=== PATIENT | male | born 1975 | race Caucasian/White ===

== ENCOUNTER 2021-12-16 12:51 | Emergency (ER) | payer OTHER ==
--- OUTSIDE RECORDS SUMMARY | 2021-12-16 12:53 | XMS REPORT | Continuity of Care Document ---
:1975 Author Organization [facility] t Address [address] [place] [address] Care Team Providers Name Role Phone Lowell-Vinicius_A_AH Attending Clinician Unavailable Karely Fuentes Attending Clinician Lowell-Jakobo_A_AH Admitting Clinician Unavailable Payers Payer Name Policy Type Policy Number Effective Date Expiration Date S noreen [facility] [place] [facility] [id number] 2019 [place] 00:00:00 (MEDICARE REPLACEMENT/ADVANT AGE - HMO) Problems Condition Condition Condition Status Onset Resolution Last Treating Co mments Source Name Details Category Date Date Treatment Clinician Date No known No known Disease Unive rs active active ity of problems problems [facility] Allergies, Adverse Reactions, Alerts This patient has no known allergies or adverse reactions. Social History Social Habit Start Date Stop Date Quantity Comments Source History of tobacco Cigarette Smoker [facility] use [facility] Alcohol intake [facility] Assigned [facility] Smoking Status Start Date Stop Date Source Former smoker 2019-07-06 00:00:00 2019-07-06 00:00:00 [facility] Medications Ordered Filled Start Stop Current Ordering Indication Dosage Frequency Signature Comments Components Source Medication Medication Date Date Medication? Clinician (SIG) Name Name ibuprofen Yes [id number] 600mg Take 1 [facility] 600 mg 8-21 tablet by ity of tablet 00:00: mouth [place] 00 every 6 Medical (six) Branch hours as needed for Pain (scale 4-6). amoxicillin 2019- No [id number] 500mg Take 1 [facility] 500 mg 8-21 07-17 capsule by ity of capsule 00:00: 04:59 mouth 3 [place] 00 :00 (three) Medical times Branch daily for 10 days. Vital Signs Vital Name Observation Time Observation Value Comments Source Systolic blood 2019-07-06 20:52:00 133 mm[Hg] Univer sity of pressure [facility] Diastolic blood 2019-07-06 20:52:00 69 mm[Hg] Unive rsity of pressure [facility] Heart rate 2019-07-06 20:52:00 100 [facility] Body temperature 2019-07-06 20:52:00 36.83 [facility] Respiratory rate 2019-07-06 20:52:00 14 /min [facility] Body height 2019-07-06 20:52:00 170.2 cm Universi ty [facility] Body weight 2019-07-06 20:52:00 72.576 kg Universi [facility] BMI 2019-07-06 20:52:00 25.06 kg/m2 [facility] Oxygen saturation in 2019-07-06 20:52:00 96 /min [facility] Arterial blood by [facility] Pulse oximetry Branch Procedures Procedure Date / Time Performed Performing Clinician [facility] e NOTICE OF PRIVACY 2019-07-06 20:45:37 Doctor Unassigned, No [facility] PRACTICES Name Medical Branch Encounters Start End Encounter Admission Attending Care Care Encounter Source Date/Time Date/Time Type Type Clinicians Facility Department ID 2020-01-04 2020-01-04 Outpatient Lowell-Vinicius [facility] [id number] [facility] 07:17:00 07:17:00 _A_ [id number] Family Practic e 2019-07-06 2019-07-06 Emergency Ke Lopez [facility] [id number] [facility] 15:54:05 17:23:00 Karely King [id number] i ty [facility] [id number] [facility] [id number] Medi jose guadalupe 084 Branch Results This patient has no known results.
[2021-12-16 15:17] LABS: Urine Blood Negative (Negative); Urine Glucose Negative (Negative); Urine Protein Negative (Negative); Urine Specific Gravity 1.025 (1.005-1.030)
[2021-12-16 15:29] LABS: Absolute Lymphocytes (CBC) 1.7 K/uL (0.7-4.9); Hematocrit 43.1 % (39.6-49.0); Lymphocytes % 32.5 % (15.3-44.8); MPV 8.2 fL (7.6-11.3); RBC Red Blood Cell Count 4.46 M/uL (4.33-5.43)
[2021-12-16 15:30] LABS: Protime INR 0.98
[2021-12-16 15:44] LABS: Barbiturates NEGATIVE (NEGATIVE); Benzodiazepines NEGATIVE (NEGATIVE); Cocaine NEGATIVE (NEGATIVE); METHAMPHETAM NEGATIVE (NEGATIVE); Methadone NEGATIVE (NEGATIVE); Opiates NEGATIVE (NEGATIVE); Phencyclidine NEGATIVE (NEGATIVE); THC Cannibis POSITIVE (NEGATIVE)
[2021-12-16 15:54] LABS: ALT/SGPT 93 U/L (12-78); AST/SGOT 70 U/L (15-37); Albumin 3.6 g/dL (3.4-5.0); Alkaline Phosphatase 133 U/L (45-117); BUN Blood Urea Nitrogen 16 mg/dL (7-18); Bicarbonate 28 mmol/L (21-32); Bilirubin Direct 0.2 mg/dL (0-0.2); Bilirubin Total 0.5 mg/dL (0.2-1.0); Glucose Level 99 mg/dL (74-106); NT PRO-BNP 42 pg/mL (<125); Potassium 4.3 mmol/L (3.5-5.1); Protein, Total 7.6 g/dL (6.4-8.2); Sodium Level 138 mmol/L (136-145); Thyroid Stimulating Hormone 0.808 uIU/mL (0.360-3.740)
--- NOTE | 2021-12-16 16:00 | RAD REPORT ---
EXAM DESCRIPTION: RAD - Chest Single View - 12/16/2021 3:53 pm CLINICAL HISTORY: PALPITATIONS COMPARISON: CHEST PA AND LAT 2 VIEW dated 08/20/2008 FINDINGS: Lines: None. Lungs: No evidence of edema or pneumonia. Pleural: No significant pleural effusions or pneumothorax. Cardiac: The heart size is within normal limits. Bones: No acute fractures. Remote right-sided rib fractures. Other: IMPRESSION: No acute cardiopulmonary disease.
[2021-12-16 16:20] LABS: T3 Free 2.94 pg/mL (2.18-3.98)
--- NOTE | 2021-12-16 19:41 | EDPHYS ---
Physician Documentation [facility] Name: Perry Daniel Age: 46 yrs Sex: Male : 1975 Arrival Date: 12/16/2021 Time: 12:54 Bed 11 Private MD: ED Physician Jamari Figueroa HPI: 12/16 15:00 This 46 yrs old Male presents to ER via Ambulatory with complaints of Chest Pressure. cp 15:00 The patient presents with a history of irregular heart beat. cp 15:00 Context: The symptoms occur without known cause. Onset: The symptoms/episode cp began/occurred 1 month(s) ago. Duration: The patient or guardian reports multiple episodes, that are intermittent, with no pattern. Associated signs and symptoms: Pertinent positives: chest pressure, Pertinent negatives: cough, fever, SOB, syncope, vomiting. Severity of symptoms: in the emergency department the symptoms have improved markedly. Historical: - Allergies: 13:09 No Known Allergies; [facility] - PMHx: 13:09 Bipolar disorder; tourette's syndrome; [facility] - Immunization history:: Adult Immunizations up to date, Client reports having NOT received the Covid vaccine. - Social history:: Smoking status: Patient reports the use of cigarette tobacco products. ROS: 15:05 Constitutional: Negative for body aches, chills, fever, poor PO intake. cp 15:05 Eyes: Negative for injury, pain, redness, and discharge. cp 15:05 ENT: Negative for ear pain, sore throat, difficulty swallowing, difficulty handling secretions. 15:05 Cardiovascular: Positive for chest pain, palpitations, Negative for edema. 15:05 Respiratory: Negative for cough, shortness of breath, wheezing. 15:05 Abdomen/GI: Negative for abdominal pain, nausea, vomiting, and diarrhea. 15:05 Back: Negative for radiated pain. 15:05 Neuro: Negative for altered mental status, dizziness, headache, numbness, syncope, weakness. 15:05 All other systems are negative. Exam: 14:20 ECG was reviewed by the Attending Physician. cp 15:10 Constitutional: The patient appears in no acute distress, alert, awake, cp non-diaphoretic, non-toxic, well developed, well nourished. 15:10 Head/Face: Normocephalic, atraumatic. cp 15:10 Eyes: Periorbital structures: appear normal, Conjunctiva: normal, no exudate, no injection, Sclera: no appreciated abnormality, Lids and lashes: appear normal, bilaterally. 15:10 ENT: External ear(s): are unremarkable, Nose: is normal, Mouth: Lips: moist, Oral mucosa: moist, Posterior pharynx: Airway: no evidence of obstruction, patent. 15:10 Neck: ROM/movement: is normal, is supple, without pain, no range of motions limitations. 15:10 Chest/axilla: Inspection: normal, Palpation: is normal, no crepitus, no tenderness. 15:10 Cardiovascular: Rate: normal, Rhythm: regular, Edema: is not appreciated, JVD: is not appreciated. 15:10 Respiratory: the patient does not display signs of respiratory distress, Respirations: normal, no use of accessory muscles, no retractions, labored breathing, is not present, Breath sounds: are clear throughout, no decreased breath sounds, no stridor, no wheezing. 15:10 Abdomen/GI: Inspection: abdomen appears normal, Palpation: abdomen is soft and non-tender, in all quadrants. 15:10 Back: pain, is absent, ROM is normal. 15:10 Neuro: Orientation: to person, place \T\ time. Mentation: is normal, Motor: moves all fours, strength is normal, Sensation: is normal. 18:44 ECG was reviewed by the Attending Physician. Vital Signs: 13:07 BP 148 / 104; Pulse 81; Resp 17; Temp 98.7(O); Pulse Ox 100% on R/A; Weight 74.84 kg; [facility] Height 5 ft. 7 in. (170.18 cm); Pain 0/10; 15:45 BP 139 / 99; Pulse 85; Resp 18; Pulse Ox 100% on R/A; ld1 17:52 BP 142 / 98; Pulse 84; Resp 18; Pulse Ox 100% on R/A; ld1 19:59 BP 135 / 90; Pulse 80; Resp 14; Pulse Ox 100% on R/A; st1 13:07 Body Mass Index 25.84 (74.84 kg, 170.18 cm) [facility] MDM: 14:36 Patient medically screened. 19:40 Data reviewed: vital signs, nurses notes, lab test result(s), EKG, radiologic studies, cp plain films. 19:40 Test interpretation: by ED physician or midlevel provider: ECG, plain radiologic cp studies. Counseling: I had a detailed discussion with the patient and/or guardian regarding: the historical points, exam findings, and any diagnostic results supporting the discharge/admit diagnosis, lab results, radiology results, the need for outpatient follow up, a clinical nutritionist, a family practitioner, to return to the emergency department if symptoms worsen or persist or if there are any questions or concerns that arise at home. 12/16 14:56 Order name: Basic Metabolic Panel 12/16 16:23 Interpretation: Reviewed. 12/16 14:56 Order name: CBC with Diff; Complete Time: 16:22 12/16 16:23 Interpretation: Normal except: EOSINOPHIL % 4.5. 12/16 14:56 Order name: LFT's 12/16 16:23 Interpretation: Normal except: AST 70; ALT 93; ALK 133; GLOB 4.0; A/G 0.9. 12/16 14:56 Order name: Magnesium 12/16 14:56 Order name: NT PRO-BNP 12/16 14:56 Order name: PT-INR; Complete Time: 16:22 cp 12/16 14:56 Order name: Troponin HS 12/16 14:56 Order name: XRAY Chest (1 view); Complete Time: 16:22 12/16 14:56 Order name: EKG; Complete Time: 14:57 12/16 14:57 Order name: UDS; Complete Time: 16:22 12/16 16:23 Interpretation: Normal except: THC POSITIVE. 12/16 14:57 Order name: TSH cp 12/16 14:57 Order name: T3 Free cp 12/16 15:17 Order name: Urine Dipstick-Ancillary; Complete Time: 16:22 EDMS 12/16 18:14 Order name: Troponin High Sensitivity; Complete Time: 19:39 cp 12/16 14:56 Order name: Cardiac monitoring; Complete Time: 15:21 cp 12/16 14:56 Order name: EKG - Nurse/Tech; Complete Time: 15:20 cp 12/16 14:56 Order name: IV Saline Lock; Complete Time: 15:41 cp 12/16 14:56 Order name: Labs collected and sent; Complete Time: 15:41 cp 12/16 14:56 Order name: O2 Per Protocol; Complete Time: 15:20 cp 12/16 14:56 Order name: O2 Sat Monitoring; Complete Time: 15:20 cp 12/16 14:57 Order name: Urine Dipstick-Ancillary (obtain specimen); Complete Time: 15:20 cp 12/16 18:14 Order name: EKG; Complete Time: 18:15 cp 12/16 18:14 Order name: EKG - Nurse/Tech; Complete Time: 18:46 cp EC:20 Rate is 60 beats/min. Rhythm is regular. QRS interval is normal. QT interval is normal. cp T waves are Inverted in lead aVR. Interpreted by me. Reviewed by me. 18:44 Rate is 62 beats/min. Rhythm is regular. [place] interval is normal. QRS interval is normal. cp QT interval is normal. T waves are Inverted in lead aVL. Interpreted by me. Reviewed by me. Administered Medications: No medications were administered Disposition: 12/17 06:56 Co-signature as Attending Physician, Jamari Figueroa MD. rn Disposition Summary: 12/16/21 19:40 Discharge Ordered Location: Home cp Problem: new cp Symptoms: have improved cp Condition: Stable cp Diagnosis - Palpitations cp - Chest pain, unspecified cp Followup: cp - With: Zackery Munoz MD - When: 2 - 3 days - Reason: Recheck today's complaints Discharge Instructions: - Discharge Summary Sheet cp - Nonspecific Chest Pain, Adult cp - Palpitations cp - Aspirin and Your Heart cp Forms: - Medication Reconciliation Form cp - Thank You Letter cp - Antibiotic Education cp - Prescription Opioid Use cp Signatures: Dispatcher [employer] EDJamari Mir MD MD rn Page, Corey, PA PA cp Brigitte Iraheta, RN RN jh6
--- NOTE | 2021-12-16 19:41 | ER ---
Nurse's Notes [facility] Name: Perry Daniel Age: 46 yrs Sex: Male : 1975 Arrival Date: 12/16/2021 Time: 12:54 Bed 11 Private MD: Diagnosis: Palpitations;Chest pain, unspecified Presentation: 12/16 13:07 Chief complaint: Patient states: feeling a fluttering in chest for over a week. states [facility] that his BP was elevated. Coronavirus screen: Vaccine status: Patient reports receiving the 2nd dose of the covid vaccine. Ebola Screen: Patient denies travel to an Ebola-affected area in the 21 days before illness onset. Initial Sepsis Screen: Does the patient meet any 2 criteria? No. Patient's initial sepsis screen is negative. Does the patient have a suspected source of infection? No. Patient's initial sepsis screen is negative. Risk Assessment: Do you want to hurt yourself or someone else? Patient reports no desire to harm self or others. 13:07 Method Of Arrival: Ambulatory [facility] 13:07 Acuity: IMAN 3 6 Triage Assessment: 13:10 General: Appears in no apparent distress. comfortable, slender, well groomed, well jh6 developed, well nourished, Behavior is calm, cooperative. Pain: Denies pain. Cardiovascular: No deficits noted. Reports palpitations. Historical: - Allergies: 13:09 No Known Allergies; jh6 - PMHx: 13:09 Bipolar disorder; tourette's syndrome; [facility] - Immunization history:: Adult Immunizations up to date, Client reports having NOT received the Covid vaccine. - Social history:: Smoking status: Patient reports the use of cigarette tobacco products. Screenin:45 Abuse screen: Denies threats or abuse. Denies injuries from another. Nutritional ld1 screening: No deficits noted. Tuberculosis screening: No symptoms or risk factors identified. Fall Risk None identified. Assessment: 15:45 General: Appears in no apparent distress. comfortable, Behavior is calm, cooperative, ld1 appropriate for age. 15:45 Pain: Denies pain. Neuro: Level of Consciousness is awake, alert, obeys commands, ld1 Oriented to person, place, time, situation. Cardiovascular: Capillary refill < 3 seconds Patient's skin is warm and dry. Respiratory: Airway is patent Respiratory effort is even, unlabored, Respiratory pattern is regular, symmetrical. Musculoskeletal: No signs and/or symptoms reported regarding the musculoskeletal system. 17:52 Reassessment: Patient appears in no apparent distress at this time. Patient is alert, ld1 oriented x 3, equal unlabored respirations, skin warm/dry/pink. Pain: Pain currently is 6 out of 10 on a pain scale. Vital Signs: 13:07 BP 148 / 104; Pulse 81; Resp 17; Temp 98.7(O); Pulse Ox 100% on R/A; Weight 74.84 kg; 6 Height 5 ft. 7 in. (170.18 cm); Pain 0/10; 15:45 BP 139 / 99; Pulse 85; Resp 18; Pulse Ox 100% on R/A; ld1 17:52 BP 142 / 98; Pulse 84; Resp 18; Pulse Ox 100% on R/A; ld1 19:59 BP 135 / 90; Pulse 80; Resp 14; Pulse Ox 100% on R/A; st1 13:07 Body Mass Index 25.84 (74.84 kg, 170.18 cm) [facility] ED Course: 12:54 Patient arrived in ED. as 13:09 Triage completed. [facility] 14:31 Red Venegas PA is PHCP. cp 14:31 Jamari Figueroa MD is Attending Physician. cp 15:20 UDS Sent. ld1 15:45 No provider procedures requiring assistance completed. Patient maintains SpO2 ld1 saturation greater than 95% on room air. 15:45 Patient has correct armband on for positive identification. Bed in low position. Call ld1 light in reach. Side rails up X2. monitor technician on. Pulse ox on. NIBP on. Door closed. Noise minimized. Warm blanket given. 15:53 XRAY Chest (1 view) In Process Unspecified. EDMS 18:37 Troponin High Sensitivity Sent. ld1 18:46 Troponin High Sensitivity Sent. 5 19:39 Zackery Munoz MD is Referral Physician. cp 20:00 IV discontinued, intact, bleeding controlled, No redness/swelling at site. Pressure st1 dressing applied. 20:00 Arm band placed on left wrist. st1 Administered Medications: No medications were administered Outcome: 19:40 Discharge ordered by . cp 20:00 Discharged to home ambulatory. st1 20:00 Condition: good 20:00 Discharge instructions given to Instructed on discharge instructions, follow up and referral plans. Demonstrated understanding of instructions, follow-up care. 20:01 Patient left the ED. st1 Signatures: Dispatcher [employer] Keisha Au Corey, PA PA cp Martinez, Maria [facility] Marcella Jiménez, LUCAS RN ld1 Brigitte Iraheta RN RN jh6 Dee Rubio RN RN st1 Corrections: (The following items were deleted from the chart) 13:28 13:07 BP 148 / 104; Pulse 18bpm; Resp 17bpm; Pulse Ox 100% RA; Temp 98.7F Oral; 74.84 jh6 kg; Height 5 ft. 7 in.; BMI: 25.8; Pain 0/10; jh6
[2021-12-16 20:12] VITALS: TEMP 98.7; O2SAT 100
[2021-12-16 20:17] VITALS: BP 135/90
[2021-12-17 02:33] LABS: Magnesium 2.04
--- NOTE | 2021-12-17 08:15 | EKG ---
Test Date: 2021-12-16 Test Time: 18:35:25 Systems Consultant: GALILEO MEASUREMENT RESULTS: Intervals: Rate: 62 CA: 194 QRSD: 94 QT: 426 QTc: 432 [place]: P: 29 CA: 194 QRS: 74 T: 79 INTERPRETIVE STATEMENTS: Normal sinus rhythm Normal ECG Compared to ECG 06/14/2014 12:35:19 Sinus arrhythmia no longer present Electronically Signed On 12-17-21 08:13:46 MOBILE SALES TECHNICIAN by Zackery Munoz
--- NOTE | 2021-12-17 08:17 | EKG ---
Test Date: 2021-12-16 Test Time: 14:12:43 Cable Tender: DEVIN MEASUREMENT RESULTS: Intervals: Rate: 60 [place]: QRSD: 92 QT: 412 QTc: 412 [place]: P: [place]: QRS: 54 T: 47 INTERPRETIVE STATEMENTS: Atrial fibrillation Abnormal ECG Compared to ECG 06/14/2014 12:35:19 Sinus rhythm no longer present Sinus arrhythmia no longer present Electronically Signed On 12-17-21 08:13:54 PUMP INSTALLER by Zackery Munoz
== END 2021-12-16 20:01 | disposition home or self-care (01) ==
LOC: ER 12:51
DX: R07.9 Chest pain, unspecified (principal); R00.2 Palpitations; F31.9 Bipolar disorder, unspecified; F95.2 Tourette's disorder; F17.210 Nicotine dependence, cigarettes, uncomplicated
CPT/HCPCS: 36415; 71045; 80048; 80076; 80307; 81003; 83735; 83880; 84443; 84481; 84484; 85025; 85610; 93005; 99285

== ENCOUNTER 2024-05-21 18:57 | Emergency (ER) | payer OTHER ==
--- OUTSIDE RECORDS SUMMARY | 2024-05-21 18:59 | XMS REPORT | Continuity of Care Document ---
Author Name Unknown Address [address] [place] [address] [facility] thconnect Address [address] [place] [address] Care Team Providers Care Manager Coding Name Role Phone OVIDIO MONTEMAYOR Attending Clinician Unavailable Ovidio Montemayor DO Attending Clinician Payers Payer Name Policy Type Policy Number Effective Date Expirati on Date Source [employer] [place] [employer] NO PREMIUM [id number] 2022 00:00:00 Encounters Start Date/Time End Date/Time Encounter Type Admission Type Attending Clinicians Care Facility Care Department Encounter ID Source 2022-11-07 00:00:00 2022-11-07 00:00:00 Outpatient OVIDIO MONTEMAYOR [id number] Jalyn Basurto 2022-06-03 15:30:00 2022-06-03 15:30:00 Outpatient OVIDIO MONTEMAYOR [id number] Jalyn Basurto 2022-05-06 14:15:00 2022-05-06 14:45:00 Office Visit Ovidio Montemayor [id number] Jalyn Basurto 2022-05-06 00:00:00 2022-05-06 00:00:00 Outpatient OVIDIO MONTEMAYOR [id number] J[facility]
[2024-05-21] MEDS ORDERED: HYDROCODONE/APAP 7.5/325 MG TAB ONE (19:29)
[2024-05-21] MEDS ORDERED: IBUPROFEN 200 MG TAB PO ONE (19:30)
[2024-05-21] MEDS ORDERED: IBUPROFEN 400 MG TAB ONE (19:30)
[2024-05-21 19:55] LABS: Specific Gravity 1.018 (1.005-1.030); Urine Bilirubin NEGATIVE (Negative); Urine Blood Negative (Negative); Urine Clarity Clear (Clear); Urine Color Light-Yellow (Yellow); Urine Glucose NEGATIVE (Negative); Urine Ketones NEGATIVE (Negative); Urine Microscopic Reflex YN NO UMIC; Urine Nitrite NEGATIVE (Negative); Urine Protein NEGATIVE (Negative); Urine Urobilinogen Normal (Normal); Urine pH 6.5 (5.0-7.0)
--- NOTE | 2024-05-21 20:25 | RAD REPORT ---
EXAM DESCRIPTION: RAD - Chest Pa And Lat (2 Views) - 05/21/2024 8:11 pm CLINICAL HISTORY: PAIN Chest pain. COMPARISON: <Comparisons> FINDINGS: The lungs are clear. The heart is normal in size. No displaced fractures. IMPRESSION: No acute or concerning finding suspected.
[2024-05-21] MEDS ORDERED: AMLODIPINE 5 MG TAB ONE (20:43)
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
--- NOTE | 2024-05-21 20:49 | EDPHYS ---
Physician Documentation [facility] Name: Perry Daniel Age: 49 yrs Sex: Male : 1975 Arrival Date: 05/21/2024 Time: 18:57 Bed 16 Private MD: ED Physician Red Dang HPI: 05/21 19:21 This 49 yrs old Male presents to ER via EMS with complaints of hit in right dontae posterior chest. 19:21 The patient or guardian reports chest pain that is located primarily in the right dontae lateral posterior chest. Onset: The symptoms/episode began/occurred 3 day(s) ago. The pain does not radiate. Associated signs and symptoms: The patient has no apparent associated signs or symptoms. The chest pain is described as sharp. Modifying factors: The symptoms are alleviated by remaining still, the symptoms are aggravated by movement, palpation of area, twisting torso. Severity of pain: At its worst the pain was mild moderate in the emergency department the pain is unchanged. The patient has not experienced similar symptoms in the past. Historical: - Allergies: 19:07 No Known Allergies; nj1 - PMHx: 19:07 Bipolar disorder; tourette's syndrome; nj1 - Immunization history:: Client reports having NOT received the Covid vaccine. - Infectious Disease History:: Denies. - Social history:: Smoking status: unknown. - Family history:: not pertinent. ROS: 19:21 Constitutional: Negative for fever, chills, and weight loss, Eyes: Negative for injury, dontae pain, redness, and discharge, ENT: Negative for injury, pain, and discharge, Neck: Negative for injury, pain, and swelling, Cardiovascular: Negative for chest pain, palpitations, and edema, Respiratory: Negative for shortness of breath, cough, wheezing, and pleuritic chest pain, Abdomen/GI: Negative for abdominal pain, nausea, vomiting, diarrhea, and constipation, : Negative for injury, bleeding, discharge, and swelling, MS/Extremity: Negative for injury and deformity, Skin: Negative for injury, rash, and discoloration, Neuro: Negative for headache, weakness, numbness, tingling, and seizure, Psych: Negative for depression, anxiety, suicide ideation, homicidal ideation, and hallucinations, Allergy/Immunology: Negative for hives, rash, and allergies, Endocrine: Negative for neck swelling, polydipsia, polyuria, polyphagia, and marked weight changes, Hematologic/Lymphatic: Negative for swollen nodes, abnormal bleeding, and unusual bruising, 19:21 Back: Positive for decreased range of motion, pain at rest, pain with movement, Exam: 19:21 Constitutional: This is a well developed, well nourished patient who is awake, alert, dontae and in no acute distress. Head/Face: Normocephalic, atraumatic. Eyes: Pupils equal round and reactive to light, extra-ocular motions intact. Lids and lashes normal. Conjunctiva and sclera are non-icteric and not injected. Cornea within normal limits. Periorbital areas with no swelling, redness, or edema. ENT: Nares patent. No nasal discharge, no septal abnormalities noted. Tympanic membranes are normal and external auditory canals are clear. Oropharynx with no redness, swelling, or masses, exudates, or evidence of obstruction, uvula midline. Mucous membranes moist. Neck: Trachea midline, no thyromegaly or masses palpated, and no cervical lymphadenopathy. Supple, full range of motion without nuchal rigidity, or vertebral point tenderness. No Meningismus. Chest/axilla: Normal chest wall appearance and motion. Nontender with no deformity. No lesions are appreciated. Cardiovascular: Regular rate and rhythm with a normal S1 and S2. No gallops, murmurs, or rubs. Normal PMI, no JVD. No pulse deficits. Respiratory: Lungs have equal breath sounds bilaterally, clear to auscultation and percussion. No rales, rhonchi or wheezes noted. No increased work of breathing, no retractions or nasal flaring. Abdomen/GI: Soft, non-tender, with normal bowel sounds. No distension or tympany. No guarding or rebound. No evidence of tenderness throughout. Male : Normal genitalia with no discharge or lesions. Skin: Warm, dry with normal turgor. Normal color with no rashes, no lesions, and no evidence of cellulitis. MS/ Extremity: Pulses equal, no cyanosis. Neurovascular intact. Full, normal range of motion. Neuro: Awake and alert, GCS 15, oriented to person, place, time, and situation. Cranial nerves II-XII grossly intact. Motor strength 5/5 in all extremities. Sensory grossly intact. Cerebellar exam normal. Normal gait. Psych: Awake, alert, with orientation to person, place and time. Behavior, mood, and affect are within normal limits. 19:21 Back: pain, that is mild, that is moderate, ROM is painful, with rotation to the right, with flexion, with extension, normal spinal alignment noted, CVA tenderness, is absent, vertebral tenderness, is not appreciated, Vital Signs: 18:52 nj1 19:26 BP 168 / 123; Pulse 79; Resp 16; Temp 98; Pulse Ox 100% on R/A; Weight 74.84 kg; Height cm10 5 ft. 7 in. ; Pain 10/10; 19:30 BP 151 / 104; Pulse 83; Resp 16; Pulse Ox 100% on R/A; cm10 20:38 BP 156 / 100; Pulse 74; Resp 16; Pulse Ox 100% on R/A; cm10 19:26 Body Mass Index 25.84 (74.84 kg, 170.18 cm) cm10 19:26 Pain Scale: Adult cm10 18:52 Unable to obtain, patient refusing nj1 Veronica Coma Score: 19:21 Eye Response: spontaneous(4). Motor Response: obeys commands(6). Verbal Response: dontae oriented(5). Total: 15. MDM: 19:05 Patient medically screened. [facility] 19:23 Differential diagnosis: Blunt Chest Trauma Chest Wall Contusion Chest Wall Injury Rib dontae Fracture. Data reviewed: vital signs, nurses notes, lab test result(s), radiologic studies, plain films. Consideration of Admission/Observation Escalation of care including admission/observation considered. I considered the following discharge prescriptions or medication management in the emergency department Medications were administered in the Emergency Department. See MAR. Independent interpretation of the following test(s) in the Emergency Department X-Ray: My interpretation is no cbc, no comp met. Test considered but Not performed: CT: no ct. Care significantly affected by the following chronic conditions: bipolar, tourette. 05/21 19:14 Order name: Urinalysis w/ reflexes; Complete Time: 20:14 dontae 05/21 19:10 Order name: Chest Pa And Lat (2 Views) XRAY; Complete Time: 20:48 cm10 05/21 19:14 Order name: INCENTIVE SPIROMETRY dontae Administered Medications: 19:37 Drug: Hydrocodone-Acetaminophen PO (7.5 mg-325 mg) 1 tabs PO once Route: PO; cm10 20:40 Follow up: Response: No adverse reaction cm10 19:37 Drug: Ibuprofen PO 600 mg PO once Route: PO; cm10 20:40 Follow up: Response: No adverse reaction cm10 20:40 CANCELLED (Physician Discretion): clonidine0.1 mg PO once cm10 20:40 CANCELLED (Physician Discretion): [id number] mg PO once cm10 20:47 Not Given (Patient Refused): norvasc5 mg PO once cm10 Disposition Summary: 05/21/24 20:49 Discharge Ordered Notes: Location: Home dontae Problem: new dontae Symptoms: have improved dontae Condition: Stable dontae Diagnosis - Strain of muscle and tendon of back wall of thorax dontae - Contusion of back wall of thorax dontae - Essential (primary) hypertension dontae Followup: dontae - With: Private Physician - When: 2 - 3 days - Reason: Recheck today's complaints, Continuance of care, Re-evaluation by your physician Discharge Instructions: - Discharge Summary Sheet dontae - Acute Back Pain, Adult dontae - Hypertension, Adult dontae - Rib Fracture dontae - How to Use an Incentive Spirometer dontae - Hypertension, Adult, [id number] dontae - How to Take Your Blood Pressure, [id number] dontae - Rib Fracture, [id number] dontae - Managing Your Hypertension dontae Forms: - Medication Reconciliation Form dontae - Antibiotic Education dontae - Prescription Opioid Use dontae - Patient Portal Instructions [facility] - Leadership Thank You Letter [facility] Prescriptions: - Ibuprofen 600 mg Oral Tablet - take 1 tablet ORAL route every 6 hours As needed take with food; 30 tablet; [facility] Refills: 0, Product Selection Permitted - Norvasc 5 mg Oral Tablet - take 1 tablet ORAL route once daily; 20 tablet; Refills: 0, Product Selection [facility] Permitted - Cyclobenzaprine 5 mg Oral Tablet - take 1 tablet ORAL route 3 times per day As needed; 15 tablet; Refills: 0, [facility] Product Selection Permitted Signatures: Dispatcher [employer] Red Seay MD MD cha Jaco, Norma, RN RN nj1 Lisha Ricardo RN RN cm10 Corrections: (The following items were deleted from the chart) 20:40 20:15 cloNIDine PO 0.1 mg PO once ordered. dontae cm10 20:40 20:15 Norvasc PO 10 mg PO once ordered. [facility] cm10
== END 2024-05-21 21:05 | disposition home or self-care (01) ==
LOC: ER 18:57
DX: S29.012A Strain of muscle and tendon of back wall of thorax, initial encounter (principal); S20.221A Contusion of right back wall of thorax, initial encounter; I10 Essential (primary) hypertension
CPT/HCPCS: 71046; 81003; 99284